=== PATIENT | male | born 1945 | race Caucasian/White ===

== ENCOUNTER → 2016-09-16 | Outpatient (REF) | payer MEDICARE, OTHER ==
[~2016-09-16] MED LIST: AMOX1TAB12 PO; ASPI-586 PO; ATOR10TA PO; AZIT250T81 PO; CYAN50004 SL; LISI1TAB10 PO; PRAV40TA2 PO; PRED20TA PO; TELM20TA PO
== END ==
LOC: LAB 16:19
PROVIDERS: ATTEND Internal Medicine
DX: M79.89 Other specified soft tissue disorders (principal)
CPT/HCPCS: 85379